=== PATIENT | female | born 1985 | race American Indian/Alaskan Native ===

== ENCOUNTER 2017-08-06 08:32 | Emergency (ER) | payer OTHER ==
[2017-08-06 09:46] VITALS: BP 126/71
--- NOTE | 2017-08-06 12:40 | Emergency Department Report ---
Blank Doc - Documentation Documentation: 31-year-old female asthma hypertension and induced hypertension presents to the the hospital complaining of nasal congestion since yesterday that progressed to bitemporal headache, cough, sore throat, body aches, and lightheadedness this morning. Patient complains of generalized weakness and this morning had halos around lights that have since resolved. Vision is now normal. Taking loratadine for allergies and took [id number] medicine yesterday. Denies n/v orders othostatics: neg but tachycardic ekg to verify rhythm labs cbc, bmp, hcg, thyroid meds: ns 1L, toradol
[2017-08-06] MEDS ORDERED: NACL 0.9% 1000 ML 1,000 ML IV ONE (12:46)
[2017-08-06] MEDS ORDERED: TORADOL IV ONE (12:46)
[2017-08-06 13:28] LABS: Basophils % (Auto) 0.6 % (0.0-1.8); Eosinophils % (Auto) 0.1 % (0.0-4.3); Hematocrit 35.8 % (30.3-42.9); Hemoglobin 11.5 gm/dl (10.1-14.3); Lymphocytes % (Auto) 14.1 % (13.4-35.0); Mean Corpuscular HGB Conc 32 % (30-34); Mean Corpuscular Hemoglobin 28 pg (28-32); Mean Corpuscular Volume 86 fl (79-97); Monocytes # (Auto) 1.1 K/mm3 (0.0-0.8); Monocytes % (Auto) 15.9 % (0.0-7.3); Platelet Count 291 K/mm3 (140-440); Red Blood Count 4.15 M/mm3 (3.65-5.03)
[2017-08-06 13:54] LABS: BUN/Creatinine Ratio 10; Blood Urea Nitrogen 6 mg/dL (7-17); Calcium 8.9 mg/dL (8.4-10.2); Hemolysis Index 1
[2017-08-06 14:09] LABS: Free T4 (Free Thyroxine) 0.82 ng/dL (0.76-1.46)
--- NOTE | 2017-08-06 15:21 | Emergency Department Report ---
- General Chief Complaint: Upper Respiratory Infection Stated Complaint: VISION BLURRED Time Seen by Provider: 08/06/17 12:32 Source: patient Mode of arrival: Ambulatory Limitations: No Limitations - History of Present Illness Initial Comments: 31-year-old female past medical history asthma, hypertension presents with complaint of 2 days of nasal congestion and slight dizziness. Patient states she has been been experiencing rhinorrhea some body aches and intermittent headaches and feels somewhat weaker than usual. Denies nausea or vomiting denies urinary frequency or dysuria. Denies chest pain or palpitations. Denies shortness of breath. Primarily stating that her nasal congestion cough and runny nose have been making her feel uncomfortable. Patient denies smoking drinking or drug use. States she is currently taking loratadine for her nasal congestion. States she woke up with slightly blurry vision but this spontaneously resolved. Denies headache or blurry vision now. Denies head trauma. MD Complaint: rhinorrhea, nasal congestion Onset/Timin -: days(s) Severity: mild Consistency: constant Associated Symptoms: rhinorrhea, nasal congestion - Related Data Home Medications Medication Instructions Recorded Confirmed Last Taken medroxyPROGESTERone ACETATE 1 ml IM Q3M 07/01/14 07/01/14 05/19/14 [Depo-Provera (Contraception)] Previous Rx's Medication Instructions Recorded Last Taken Type Acetaminophen/Codeine 1 tab PO Q6H PRN #12 tab 07/01/14 Unknown Rx [Acetaminophen-Codeine #3 TAB] Cyclobenzaprine [Flexeril 10mg] 10 mg PO Q8H PRN #15 tablet 07/01/14 Unknown Rx Ibuprofen [Motrin 800 MG tab] 800 mg PO Q8H PRN #20 tablet 07/01/14 Unknown Rx Azithromycin [Zithromax Z-CLARITA] 250 mg PO DAILY #6 tab 02/25/15 Unknown Rx Fluticasone [Flonase] 1 spray NS QDAY #1 bottle 02/25/15 Unknown Rx Ibuprofen [Motrin] 800 mg PO Q8HR PRN #15 tablet 02/25/15 Unknown Rx guaiFENesin/CODEINE [Robitussin AC] 10 ml PO QHS PRN #50 udc 02/25/15 Unknown Rx methylPREDNISolone [Medrol Dose 4 mg PO QAM #1 pack 02/25/15 Unknown Rx Clarita] Amoxicillin/K Clav Tab [Augmentin 1 tab PO Q12HR #14 tab 08/06/17 Unknown Rx 875 mg] Fluticasone [Flonase] 1 spray NS QDAY PRN #1 bottle 08/06/17 Unknown Rx Ibuprofen [Motrin] 800 mg PO Q8HR PRN #20 tablet 08/06/17 Unknown Rx Allergies Allergy/AdvReac Type Severity Reaction Status Date / Time No Known Allergies Allergy Unverified 02/25/15 08:12 ED Review of Systems ROS: Stated complaint: VISION BLURRED Other details as noted in HPI Constitutional: denies: chills, fever Eyes: denies: eye pain, eye discharge, vision change ENT: congestion. denies: ear pain, throat pain Respiratory: denies: cough, shortness of breath, wheezing Cardiovascular: denies: chest pain, palpitations Endocrine: no symptoms reported Gastrointestinal: denies: abdominal pain, nausea, diarrhea Genitourinary: denies: urgency, dysuria, discharge Musculoskeletal: denies: back pain, joint swelling, arthralgia Skin: denies: rash, lesions Neurological: denies: headache, weakness, paresthesias Psychiatric: denies: anxiety, depression Hematological/Lymphatic: denies: easy bleeding, easy bruising ED Past Medical Hx - Past Medical History Previous Medical History?: Yes Hx Hypertension: Yes (during only) Hx Asthma: Yes Additional medical history: palpitation - Surgical History Past Surgical History?: Yes Additional Surgical History: LEEP procedure - Social History Smoking Status: Never Smoker Substance Use Type: None - Medications Home Medications: Home Medications Medication Instructions Recorded Confirmed Last Taken Type Acetaminophen/Codeine 1 tab PO Q6H PRN #12 tab 07/01/14 Unknown Rx [Acetaminophen-Codeine #3 TAB] Cyclobenzaprine [Flexeril 10mg] 10 mg PO Q8H PRN #15 tablet 07/01/14 Unknown Rx Ibuprofen [Motrin 800 MG tab] 800 mg PO Q8H PRN #20 tablet 07/01/14 Unknown Rx medroxyPROGESTERone ACETATE 1 ml IM Q3M 07/01/14 07/01/14 05/19/14 History [Depo-Provera (Contraception)] Azithromycin [Zithromax Z-CLARITA] 250 mg PO DAILY #6 tab 02/25/15 Unknown Rx Fluticasone [Flonase] 1 spray NS QDAY #1 bottle 02/25/15 Unknown Rx Ibuprofen [Motrin] 800 mg PO Q8HR PRN #15 tablet 02/25/15 Unknown Rx guaiFENesin/CODEINE [Robitussin AC] 10 ml PO QHS PRN #50 udc 02/25/15 Unknown Rx methylPREDNISolone [Medrol Dose 4 mg PO QAM #1 pack 02/25/15 Unknown Rx Clarita] Amoxicillin/K Clav Tab [Augmentin 1 tab PO Q12HR #14 tab 08/06/17 Unknown Rx 875 mg] Fluticasone [Flonase] 1 spray NS QDAY PRN #1 bottle 08/06/17 Unknown Rx Ibuprofen [Motrin] 800 mg PO Q8HR PRN #20 tablet 08/06/17 Unknown Rx ED Physical Exam - General Limitations: No Limitations General appearance: alert, in no apparent distress - Head Head exam: Present: atraumatic, normocephalic - Eye Eye exam: Present: normal appearance, PERRL, EOMI - ENT ENT exam: Present: mucous membranes moist - Neck Neck exam: Present: normal inspection - Respiratory Respiratory exam: Present: normal lung sounds bilaterally. Absent: respiratory distress - Cardiovascular Cardiovascular Exam: Present: regular rate, normal rhythm. Absent: systolic murmur, diastolic murmur, rubs, gallop - GI/Abdominal GI/Abdominal exam: Present: soft, normal bowel sounds - Extremities Exam Extremities exam: Present: normal inspection - Back Exam Back exam: Present: normal inspection - Neurological Exam Neurological exam: Present: alert, oriented X3 - Psychiatric Psychiatric exam: Present: normal affect, normal mood - Skin Skin exam: Present: warm, dry, intact, normal color. Absent: rash ED Course Vital Signs 08/06/17 08/06/17 09:41 13:21 Temperature 98.6 F Pulse Rate 120 H Respiratory 18 20 Rate Blood Pressure 126/71 O2 Sat by Pulse 98 Oximetry ED Medical Decision Making - Lab Data Result diagrams: 08/06/17 13:11 08/06/17 13:11 - Medical Decision Making A/P: Sinusitis 1- Augmentin, Flonase, Motrin 2- labs unremarkable now asymptomatic 3-follow-up with primary care Critical care attestation.: If time is entered above; I have spent that time in minutes in the direct care of this critically ill patient, excluding procedure time. ED Disposition Clinical Impression: Sinusitis Qualifiers: Sinusitis location: frontal Chronicity: acute Recurrence: non-recurrent Qualified Code(s): J01.10 - Acute frontal sinusitis, unspecified Disposition: DC- TO HOME OR SELFCARE Is pt being admited?: No Does the pt Need Aspirin: No Condition: Stable Instructions: Sinusitis (ED), Return to Work Instructions (ED) Prescriptions: Amoxicillin/K Clav Tab [Augmentin 875 mg] 1 tab PO Q12HR #14 tab Fluticasone [Flonase] 1 spray NS QDAY PRN #1 bottle PRN Reason: Congestion Ibuprofen [Motrin] 800 mg PO Q8HR PRN #20 tablet PRN Reason: Pain Referrals: [facility] [place] [Outside] - 3-5 Days [facility] [Outside] - 3-5 Days Forms: Work/School Release Form(ED) Time of Disposition: 15:21
== END 2017-08-06 15:39 | disposition home or self-care (01) ==
LOC: ED 08:32
DX: J01.10 Acute frontal sinusitis, unspecified (principal); I10 Essential (primary) hypertension
CPT/HCPCS: 36415; 80048; 84439; 84443; 84703; 85025; 93005; 93010; 96361; 96374; 99283; J1885; J7030